=== PATIENT | male | born 1965 | race Caucasian/White ===

== ENCOUNTER 2019-07-17 16:28 | Emergency (ER) | payer BC ==
[~2019-07-17] VITALS: Ht 182.9 cm; Wt 102.1 kg
[2019-07-17 16:34] VITALS: BP 151/103
== END 2019-07-17 17:25 | disposition home or self-care (01) ==
LOC: ER 16:34
DX: F41.9 Anxiety disorder, unspecified (principal); R05 Cough; R00.0 Tachycardia, unspecified; Z98.890 Other specified postprocedural states